=== PATIENT | male | born 1970 | race Hispanic/Latino ===

== ENCOUNTER 2023-12-25 09:24 | Emergency (ER) | payer BC ==
[2023-12-25] MEDS ORDERED: Ketorolac Tromethamine 60 MG/2 ML VIAL ONE (10:10)
[2023-12-25] MEDS ORDERED: Boostrix 0.5 ML (Tdap) VIAL (>/=7 yrs of age) ONE (10:26)
[2023-12-25] MEDS ORDERED: Ondansetron PF 4 MG/2 ML Vial ONE (11:47)
[2023-12-25] MEDS ORDERED: Morphine 4 MG/ML VIAL ONE (11:47)
== END 2023-12-25 13:12 | disposition short-term general hospital (02) ==
LOC: NAV ERS 09:24
DX: S02.601B Fracture of unspecified part of body of right mandible, initial encounter for open fracture (principal); W31.9XXA Contact with unspecified machinery, initial encounter; Z23 Encounter for immunization
CPT/HCPCS: 70450; 70486; 72125; 90471; 90715; 96374; 96375; J1885; J2272; J2405